=== PATIENT | female | born 1965 | race Caucasian/White ===

== ENCOUNTER → 2023-05-26 17:09 | Outpatient (REF) | payer BC, SELFPAY | LOC: WDC 17:09 | PROVIDERS: ATTENDING PHYSICIAN Physician Assistant Medical | DX: Z12.31 Encounter for screening mammogram for malignant neoplasm of breast (principal) | CPT/HCPCS: 77063; 77067 ==

== ENCOUNTER → 2024-05-27 13:35 | Outpatient (REF) | payer BC, SELFPAY | LOC: WDC 13:35 | PROVIDERS: ATTENDING PHYSICIAN Obstetrics & Gynecology; FAMILY PHYSICIAN Physician Assistant Medical | DX: Z12.31 Encounter for screening mammogram for malignant neoplasm of breast (principal) | CPT/HCPCS: 77063; 77067 ==